=== PATIENT | male | born 1980 | race African-American/Black ===

== ENCOUNTER 2019-10-09 07:37 | Emergency (ER) | payer MEDICAID ==
[~2019-10-09] VITALS: Ht 188 cm; Wt 75.0 kg
[2019-10-09 07:41] VITALS: BP 144/69
[2019-10-09] MEDS ORDERED: ACETAMINOPHEN 325MG TABLET PO ONE (08:15)
[2019-10-09] MEDS ORDERED: KETOROLAC 60MG/2ML VIAL IM ONE (08:30)
== END 2019-10-09 09:56 | disposition left against medical advice (07) ==
LOC: ER 07:59
DX: M25.552 Pain in left hip (principal); M25.551 Pain in right hip
CPT/HCPCS: 96372; 99283; J1885